=== PATIENT | female | born 1950 | race Caucasian/White ===

== ENCOUNTER 2019-05-14 14:40 | Outpatient (CLI) | payer MEDICARE | END 2019-05-14 23:59 | disposition home or self-care (01) | LOC: CVU 14:40 | PROVIDERS: ATTEND Internal Medicine Cardiovascular Disease | DX: I65.23 Occlusion and stenosis of bilateral carotid arteries (principal); I07.1 Rheumatic tricuspid insufficiency | CPT/HCPCS: 93306; 93880 ==

== ENCOUNTER → 2019-11-24 | Outpatient (CLI) | payer MEDICARE ==
[~2019-11-24] MED LIST: REGADENOSON 0.4 MG/5 ML SYRINGE ONE
== END | disposition home or self-care (01) ==
LOC: CFH 12:37
PROVIDERS: ATTEND Physician Assistant Medical
DX: R07.9 Chest pain, unspecified (principal)
CPT/HCPCS: 78452; 93017; A9502; J2785